=== PATIENT | male | born 1940 | race Caucasian/White ===

== ENCOUNTER 2017-11-20 11:55 | Observation (INO) ==
[2017-11-20] MEDS ORDERED: Aspirin 81 MG TAB.CHEW PO ONE (12:00)
[2017-11-20] MEDS ORDERED: 0.9 % Sodium Chloride 500 ML IVC ONE (12:00)
--- NOTE | 2017-11-20 12:03 | Emergency Department Note ---
Disposition Clinical Impression: Chest pain, rule out acute myocardial infarction, Neck pain Disposition: Home, Self-Care Condition: Fair Referrals: Jermaine Godoy DO [Primary Care Provider] - Time of Disposition: 13:51 General Adult HPI - General Stated complaint: chest pain Time Seen by Provider: 11/20/17 12:00 Source: patient, EMS Mode of arrival: EMS Limitations: no limitations Nursing Notes Reviewed: Yes Vital Signs Reviewed: Yes - History of Present Illness HPI Narrative: Patient presents to the ED via EMS as a potential STEMI alert. EMS was called to the patient's house for chest discomfort and neck pain. Upon arrival to the ED, patient states his chest is no longer hurting, but he was having pain in his neck and bilateral shoulder/trapezius. No known injury. Has not strained it in any way. Did not have any diaphoresis, nausea, vomiting or shortness of breath. Patient has no history of ACS. He has also never had a stress test or heart catheter. Denies any abdominal pain. No rashes. No pain or swelling in his legs. His chest pain is pleuritic in nature. Pain Scale: 2 - Related Data Home Medications Medication Instructions Recorded Confirmed Amlodipine [Norvasc] 5 mg PO DAILY 01/18/15 01/29/16 Carvedilol [Coreg] 25 mg PO BID 01/18/15 01/29/16 Ergocalciferol (VITAMIN D2) 50,000 unit PO WE 01/18/15 01/29/16 [Vitamin D2 (50,000 UNIT)] Simvastatin [Zocor] 40 mg PO HS 01/18/15 01/29/16 Valsartan [Diovan] 320 mg PO DAILY 12/23/15 01/29/16 GlipiZIDE [Glipizide ER] 5 mg PO BID 01/29/16 01/29/16 Previous Rx's Medication Instructions Recorded Acetaminophen [Tylenol] 650 mg PO Q6HR PRN #0 01/30/16 Allergies Allergy/AdvReac Type Severity Reaction Status Date / Time atorvastatin Allergy Rash Verified 11/20/17 12:02 metformin Allergy Rash Verified 11/20/17 12:02 Penicillins [PCN] Allergy Rash Verified 11/20/17 12:02 Review of Systems: As reviewed in the HPI. All other systems reviewed are negative or normal. Past Medical History - Past Medical History Attestation: Yes The following information was validated with the patient. Source: patient Medical history: Reports: diabetes, hyperlipidemia, hypertension, renal disease Surgical history: Reports: other Psychiatric history: Reports: no psych history - Social History Smoking Status: Former smoker Smokeless Tobacco Status: Yes (chews tobacco) Alcohol use: Reports: occasionally Drug use: Reports: none Physical Exam CONSTITUTIONAL: [well appearing, alert and in no acute distress] EYES: [EOMI, clear conjunctiva, PERRLA] HENT: [Normocephalic, atraumatic, moist mucus membranes, normal oropharynx] NECK: [normal inspection, full ROM, trachea midline, no obvious swelling] PULMONARY: [normal lung sounds bilaterally, normal chest rise and fall, no respiratory distress or stridor, no wheezes, no rales, no rhonchi CARDIOVASCULAR: [regular rate, regular rhythm, normal heart sounds, no murmurs, distal extremities are warm and well perfused] GASTROINSTESTINAL: [soft, non-tender, non-rigid, non-distended, no guarding, no rebound, normal bowel sounds] GENITOURINARY/RECTAL: [deferred] NEUROLOGIC: [Alert, oriented x3, normal speech, moves all extremities] EXTREMITIES: [Normal inspection, full ROM, no tenderness, no pedal edema, normal capillary refill] MUSCULOSKELETAL: [no gross deformities, atraumatic] SKIN: [No cyanosis, no diaphoresis, normal color, warm, no rash] PSYCHIATRIC: [normal mood and affect] - General Limitations: no limitations General appearance: alert, in no apparent distress Course Course Narrative: Patient presenting with chest pain, neck pain and back pain. EMS EKG does "read " STEMI but is not STEMI. Will get CP workup and admit. - Reevaluation(s) Reevaluation #1: Admitted to the hospitalist service. Did request Lovenox. Time: 13:46 Vital Signs Temperature 98.3 F 11/20/17 11:55 Pulse Rate 84 11/20/17 11:55 Respiratory Rate 18 11/20/17 11:55 Blood Pressure 141/81 11/20/17 11:55 O2 Sat by Pulse Oximetry 99 11/20/17 11:55 Temperature 98.3 F 11/20/17 11:55 Pulse Rate 84 11/20/17 11:55 Respiratory Rate 18 11/20/17 11:55 Blood Pressure 141/81 11/20/17 11:55 O2 Sat by Pulse Oximetry 97 11/20/17 12:02 Oxygen Delivery Oxygen Delivery Room Air Medical Decision Making - Medical Records Medical records reviewed: Yes I reviewed the patient's medical records. - Lab Data Lab results reviewed: Yes I reviewed the patient's lab results. Result diagrams: 11/20/17 12:10 11/20/17 12:10 Lab Results 11/20/17 11/20/17 11/20/17 Range/Units 12:00 12:10 12:10 WBC 8.4 (4.3-11.1) K/mcL RBC 4.42 (4.19-5.50) M/mcL Hgb 14.0 (12.9-16.9) g/dL Hct 40.6 (37.5-50.1) % MCV 91.9 (83.0-100.0) fL MCH 31.7 (28.0-33.3) pg MCHC 34.5 (31.6-35.5) g/dL RDW 12.3 (11.5-14.5) % Plt Count 133 L (140-400) K/mcL MPV 10.1 (9.4-12.4) fL Immature Gran % 0.4 (0-4) % Seg Neutrophils % 73.3 % Lymphocytes % 16.8 % Monocytes % 8.8 % Eosinophils % 0.5 % Basophils % 0.2 % Neutrophils # 6.2 (1.6-8.9) K/mcL Lymphocytes # 1.4 (0.6-4.6) K/mcL Monocytes # 0.7 (0.0-1.3) K/mcL Eosinophils # 0.0 (0.0-0.6) K/mcL Basophils # 0.0 (0.0-0.2) K/mcL PT 11.8 (9.4-12.1) Seconds INR 1.0 APTT 34.5 (26.0-36.0) Seconds D-Dimer 446 (0-500) ng/mLFEU Sodium 138 (136-145) mEq/L Potassium 4.2 (3.5-5.1) mEq/L Chloride 107 (98-107) mEq/L Carbon Dioxide 23 (23-29) mEq/L BUN 22 (8-23) mg/dL Creatinine 1.38 H (0.70-1.30) mg/dL Est GFR ( Amer) > 60 (> 60) Est GFR (Non-Af Amer) 50 L (> 60) BUN/Creatinine Ratio 16 (6-26) Glucose 143 H (70-105) mg/dL Calculated Osmolality 292 (280-300) Calcium 9.4 (8.6-10.3) mg/dL Troponin I < 0.03 (< 0.04) ng/mL - Radiology Data Radiology results reviewed: Yes I reviewed the patient's radiology results. - EKG Data EKG #1 EKG attestation: Yes I reviewed and interpreted this EKG. EKG results narrative: Sinus rhythm, rate 78, normal axis, ST segment depression V2, V3, V4 and V5, PVCs, no acute ST segment elevation Attestation Statement - Attestation Attestation: I examined this patient and my medical decision-making was reviewed with the Resident Physician, Dr. Rubio. I agree with the documented findings, disposition and treatment plan as described except to the extent set forth below. Patient is a 77-year-old male with a history of diabetes hypertension hyperlipidemia and presents seem or permit by EMS for chest pain. Patient was called over the radio as possible STEMI alert. EKG was transmitted but did not meet criteria for STEMI. We awaited the patient for the patient in the trauma bay. Patient's called 911 for chest pain radiating up into his neck. On arrival to the ED patient states the pain in his chest had resolved but he was still experiencing pain in the neck and bilateral shoulders. Patient denies any history of falls or trauma, no musculoskeletal injuries or strain. Patient has never had a cardiac evaluation in the past and no prior cardiac history. Patient denies any associated symptoms with this pain but does state that it is aggravated by deep breathing. I agree with patient's physical exam findings as documented. Vital signs are stable. Bilateral blood pressures are equal Patient's EKG shows normal sinus rhythm with ST depression seen in the anterolateral leads. Patient's lab evaluation as well as chest x-rays unremarkable overall with a negative troponin and d-dimer. Patient currently is pain-free. Patient will be admitted for further evaluation of chest pain case was discussed with hospitalist who accepted patient for admission for further eval management.
[2017-11-20] MEDS ORDERED: 0.9 % Sodium Chloride 1,000 ML ONE (12:10)
[2017-11-20 12:24] LABS: Basophils % 0.2 %; Eosinophils % 0.5 %; Hematocrit 40.6 % (37.5-50.1); Immature Granulocytes % 0.4 % (0-4); Lymphocytes # 1.4 K/mcL (0.6-4.6); Lymphocytes % 16.8 %; Mean Corpuscular HGB Conc 34.5 g/dL (31.6-35.5); Mean Corpuscular Hemoglobin 31.7 pg (28.0-33.3); Mean Corpuscular Volume 91.9 fL (83.0-100.0); Mean Platelet Volume 10.1 fL (9.4-12.4); Monocytes # 0.7 K/mcL (0.0-1.3); Monocytes % 8.8 %; Neutrophils # 6.2 K/mcL (1.6-8.9); Platelet Count 133 K/mcL (140-400); Red Blood Count 4.42 M/mcL (4.19-5.50); Red Cell Distribution Width 12.3 % (11.5-14.5); Segmented Neutrophils % 73.3 %
[2017-11-20 12:32] LABS: Prothrombin Time 11.8 Seconds (9.4-12.1)
[2017-11-20 12:35] LABS: Activated Partial Thrombo Time 34.5 Seconds (26.0-36.0)
[2017-11-20 12:45] LABS: BUN/Creatinine Ratio 16 (6-26); Blood Urea Nitrogen 22 mg/dL (8-23); Calcium 9.4 mg/dL (8.6-10.3); Carbon Dioxide 23 mEq/L (23-29); Chloride 107 mEq/L (98-107); Glucose 143 mg/dL (70-105); Osmolality,Calculated 292 (280-300); Potassium 4.2 mEq/L (3.5-5.1); Sodium 138 mEq/L (136-145); eGFR For Non-African Americans 50 (> 60)
[2017-11-20 12:46] LABS: Troponin I < 0.03 ng/mL (< 0.04)
[2017-11-20] MEDS ORDERED: *HR* Enoxaparin 120 MG/0.8 ML SYRINGE SQ STA (13:42)
--- NOTE | 2017-11-20 15:17 | Internal Med History&Physical ---
Date of Encounter: 11/20/17 Time of Encounter: 15:00 Internal Medicine - H&P: HPI Chief complaint: Bilateral shoulder and neck pain, throat pain Admitted From: Emergency Dept Plans for Post Hospital Care: Home History of present illness: Mr. Dillon is a 77 year old male patient with history of diabetes, hypertension and chronic kidney disease stage III who presented to the ER with complaints of bilateral shoulder pain and neck pain along with pain in his throat and neck with deep breaths. He reports that his symptoms began yesterday morning and have persisted since then. However the resolved while he was being transported here. He denies any fevers or chills. No prior history of coronary artery disease. No recent stress test. No palpitations. No shortness of breath. No fevers or chills. No nausea or vomiting. Past Med Surg Social Fam HX - Past Medical History Attestation: Yes The following information was validated with the patient. Source: patient Medical history: diabetes, hyperlipidemia, hypertension, renal disease Psychiatric history: no psych history - Past Surgical History Surgical History: other Additional surgical history: right knee reaplacement - Social History Smoking Status: Former smoker Smokeless Tobacco Status: Yes (chews tobacco) Alcohol use: occasionally Drug use: none - Additional Family History Additional family history: History of diabetes, possible congestive heart failure in father Internal Medicine - H&P: Meds Amlodipine [Norvasc] 5 mg PO DAILY 01/18/15 [History] Carvedilol [Coreg] 25 mg PO BID 01/18/15 [History] Ergocalciferol (VITAMIN D2) [Vitamin D2 (50,000 UNIT)] 50,000 unit PO WE [History] Simvastatin [Zocor] 40 mg PO HS 01/18/15 [History] Valsartan [Diovan] 320 mg PO DAILY 12/23/15 [History] GlipiZIDE [Glipizide ER] 5 mg PO BID 01/29/16 [History] Acetaminophen [Tylenol] 650 mg PO Q6HR PRN #0 01/30/16 [Rx] 3 Allergy/AdvReac Type Severity Reaction Status Date / Time atorvastatin Allergy Rash Verified 11/20/17 12:02 metformin Allergy Rash Verified 11/20/17 12:02 Penicillins [PCN] Allergy Rash Verified 11/20/17 12:02 All Systems PM: A 10-system review of systems was performed and is negative for pertinent findings except as documented above in the HPI. - Constitutional Constitutional: no chills, no fever(s), no night sweats - EENT Eyes: no change in vision, no discharge, no pain, no photophobia Ears: no ear discharge, no ear pain, no tinnitus Nose, mouth and throat: no dysphagia, no nasal discharge, no neck pain, no sore throat - Cardiovascular Cardiovascular ROS IM: chest pain, no diaphoresis, no dyspnea, no lightheadedness, no palpitations, no syncope - Respiratory Respiratory: no cough, no dyspnea, no wheezing, no excessive phlegm production - Gastrointestinal Gastrointestinal: no abdominal pain, no diarrhea, no hematemesis, no hematochezia, no melena, no nausea, no vomiting - Musculoskeletal Musculoskeletal ROS IM: neck pain, no numbness, no tingling - Integumentary Integumentary IM: no rash, no unusual bruising - Neurological Neurological ROS: no confusion, no convulsions, no focal weakness, no numbness, no tingling, no tremor(s) - Hematologic/Lymphatic Hematologic/Lymphatic: no easy bruising - Constitutional Vitals: Temp Pulse Resp BP Pulse Ox 98.3 F 84 18 133/77 97 11/20/17 11:55 11/20/17 11:55 11/20/17 14:56 11/20/17 14:56 11/20/17 12:02 General appearance: Present: cooperative, A&O X 3, answers questions appropriately Exam: General: Patient is alert, no acute distress, oriented x 3 Head: atraumatic, normocephalic, Eye: normal appearance, PERRL, no scleral icterus, no conjunctival injection Neck: normal inspection, trachea midline, full ROM, no carotid bruits Chest: normal inspection, symmetric chest rise, no chest wall tenderness. Patient has a lidocaine patch on the back of his neck and upper chest Respiratory: Good respiratory effort. Normal breath sounds. No wheezing or crackles. Cardiovascular: Regular rate and rhythm. s1 and s2 normal No clicks, rubs, gallops, or murmurs. No pedal edema Abdomen: Abdomen is soft, nontender. Bowel sounds are present Musculoskeletal: Spontaneously moving all extremities Skin: warm, dry, intact. Neuro: Alert oriented x 3 normal cranial nerves, no focal deficits Psych: Patient's affect is normal Internal Med - H&P Results - Labs CBC & Chem 7: 11/20/17 12:10 11/20/17 12:10 - EKG Data -: EKG Interpreted by Myself - EKG Data Prior EKG available for review: yes When compared to previous EKG: there is no significant change Interpretation IM: other (Right bundle-branch block) - Impressions Impressions Chest X-Ray 11/20/17 12:00 IMPRESSION: No acute cardiopulmonary process identified. D/ / Aleksandar Anna MD / Aleksandar Anna MD Interpreting Provider: Aleksandar Anna MD - Assessment and plan (1) Neck pain Current Visit: Yes Status: Acute Assessment and plan: Patient complaining of neck pain and bilateral shoulder pain. Now improved. Also reported pain in throat with deep breaths. Given his abnormal EKG, there was concern for ACS. For now we will monitor his troponins. Treat pain symptomatically. Patient was started on Lovenox in the ER. Discussed with cardiology. Await troponin trend. If troponins remain negative, we will stop Lovenox. Get 2-D echocardiogram. Consider stress test. (2) Abnormal EKG Current Visit: Yes Status: Acute Assessment and plan: EKG shows right bundle branch block. Discussed with cardiology and reviewed EKGs. No changes to old EKGs. (3) Chronic kidney disease (CKD) Current Visit: Yes Status: Chronic Assessment and plan: Stable. Creatinine appears to be at baseline. Qualifiers: Chronic kidney disease stage: stage 3 (moderate) Qualified Code(s): N18.3 - Chronic kidney disease, stage 3 (moderate) (4) Diabetes mellitus Current Visit: Yes Status: Chronic Assessment and plan: Monitor blood sugars. Place patient on sliding scale insulin. Check A1c. Qualifiers: Diabetes mellitus type: type 2 Diabetes mellitus extermination supervisor insulin use: without residential use Diabetes mellitus complication status: with kidney complications Diabetes mellitus complication detail: with chronic kidney disease Chronic kidney disease stage: stage 3 (moderate) Qualified Code(s): E11.22 - Type 2 diabetes mellitus with diabetic chronic kidney disease; N18.3 - Chronic kidney disease, stage 3 (moderate) (5) Hypertension Current Visit: Yes Status: Chronic Assessment and plan: Blood pressure elevated initially but has since improved. Will continue home medications Qualifiers: Hypertension type: essential hypertension Qualified Code(s): I10 - Essential (primary) hypertension - Time Spent With Patient Total time spent is greater than 50% in coordination of care (as documented) at patient's floor/unit and/or counseling patient:
[2017-11-20] MEDS ORDERED: Naloxone 0.4 MG/ML INJ IVP PRN (15:25)
[2017-11-20] MEDS ORDERED: Acetaminophen 325 MG TABLET PO PRN (15:25)
[2017-11-20] MEDS ORDERED: *HR* Dextrose 50 % in Water (Syg) 50 ML SYRINGE IVP PRN (15:27)
[2017-11-20] MEDS ORDERED: D5% in Water 1,000 ML IVC PRN (15:27)
[2017-11-20] MEDS ORDERED: Dextrose Gel 15 GM/37.5 ML TUBE PO PRN ×2 (15:27)
[2017-11-20] MEDS: Insulin LISPRO 300 UNITS/3 ML VIAL SQ SCH (16:46)
[2017-11-20] MEDS ORDERED: Insulin LISPRO 300 UNITS/3 ML VIAL SQ SCH (21:00)
[2017-11-20 22:51] LABS: Bilirubin,Urine Negative (Negative); Blood,Urine Small (Negative); Clarity,Urine Clear (Clear); Color,Urine Yellow (Yellow); Glucose,Urine (UA) Normal (Normal); Ketones,Urine Negative (Negative); Leukocyte Esterase,Urine Negative (Negative); Nitrite,Urine Negative (Negative); Protein,Urine 30 mg/dL (Neg-Trace); Specific Gravity,Urine 1.016 (1.010-1.025); Urobilinogen,Urine Normal (Normal)
[2017-11-20 22:52] LABS: Bacteria,Urine None Seen per hpf (None-Few); Hyaline Casts,Urine None Seen per lpf (None-Few); Squamous Epithelial Cell,Urine Few per lpf (None-Few); WBC,Urine 0-3 per hpf (0-3)
[2017-11-21 00:50] LABS: Chol/HDL Ratio 2.7 (0-4.9)
[2017-11-21] MEDS: Insulin LISPRO 300 UNITS/3 ML VIAL SQ SCH ×2 (07:51→12:34)
[2017-11-21] MEDS ORDERED: amLODIPine 5 MG TABLET PO SCH (09:00)
[2017-11-21 09:20] LABS: Estimated Average Glucose 131 mg/dl; Hemoglobin A1C 6.2 %
[2017-11-21 15:27] VITALS: BP 129/72
--- NOTE | 2017-11-21 16:09 | Discharge Summary ---
- NOTES TO OUTPATIENT PROVIDER Notes to Outpatient Provider: Patient was hospitalized here after presenting to the ER with complaints of bilateral shoulder and neck pain. By the time he came to the ER his pain had improved. He did have an abnormal EKG and so was hospitalized for observation. EKG was reviewed with cardiology. Patient has right bundle branch block. Troponins were trended. They were negative. Patient underwent 2-D echocardiogram which showed normal wall motion. He has a normal ejection fraction of 60%. At this time he is stable to be discharged home. 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 Dillon is a 77 year old male Patient with history of hypertension, diabetes, chronic kidney disease stage III, who was hospitalized here after presenting to the ER with complaints of bilateral shoulder and neck pain. By the time he came to the ER his pain had improved. He did have an abnormal EKG and so was hospitalized for observation. EKG was reviewed with cardiology. Patient has right bundle branch block. Troponins were trended. They were negative. Patient underwent 2-D echocardiogram which showed normal wall motion. He has a normal ejection fraction of 60%. At this time he is stable to be discharged home. He may benefit from getting a cardiac stress test done as outpatient for further workup Discharge discussed with: patient, nurse - Time Spent with Patient Total time spent providing and/or coordinating discharge services: Less than 30 minutes (25 min) - Discharge Medications Home Medications: Amlodipine [Norvasc] 5 mg PO DAILY 01/18/15 [History] Carvedilol [Coreg] 25 mg PO BID 01/18/15 [History] Ergocalciferol (VITAMIN D2) [Vitamin D2 (50,000 UNIT)] 50,000 unit PO WE [History] Simvastatin [Zocor] 40 mg PO HS 01/18/15 [History] GlipiZIDE [Glipizide ER] 5 mg PO BID 01/29/16 [History] Acetaminophen [Tylenol] 650 mg PO Q6HR PRN #0 01/30/16 [Rx] Olmesartan Medoxomil [Benicar] 5 mg PO DAILY 11/20/17 [History] Allergies/Adverse Reactions: 3 Allergy/AdvReac Type Severity Reaction Status Date / Time atorvastatin Allergy Rash Verified 11/20/17 12:02 metformin Allergy Rash Verified 11/20/17 12:02 Penicillins [PCN] Allergy Rash Verified 11/20/17 12:02 Date of admission: 11/20/17 14:15 Primary care physician: Jermaine Godoy DO Discharging clinician: Ruslan Doherty Anticipated date of discharge: 11/21/17 - Constitutional Vitals: Temp Pulse Resp BP Pulse Ox 97.9 F 65 16 129/72 96 11/21/17 15:25 11/21/17 15:25 11/21/17 15:25 11/21/17 15:25 11/21/17 15:25 General appearance: Present: cooperative, A&O X 3, answers questions appropriately Exam: . - Respiratory Respiratory exam: Present: CTAB. Absent: accessory muscle use, rales, rhonchi, wheezes - Cardiovascular Cardiovascular exam: Present: RRR, +S1, +S2. Absent: diastolic murmur, gallop, rubs, systolic murmur - GI/Abdominal GI/Abdominal exam: Present: normal bowel sounds, soft, no peritoneal signs. Absent: distended, tenderness - Extremities Exam Extremities exam: Present: warm, radial pulses palpable and symmetrical. Absent : calf tenderness, cyanotic, pedal edema - Neurological Exam Neurological exam: Present: CN II-XII intact, oriented X3, no focal deficits. Absent: facial droop, speech deficit - Patient Status Disposition: Home, Self-Care Condition: Good Functional capacity at discharge: independent ambulation Overall status at discharge: patient is progressing back to baseline - Discharge Instructions Follow Up With: Jermaine Godoy DO [Primary Care Provider] - (In 1-2 weeks) Forms: ED Satisfaction Letter - Diet and Activity Activity: increase activity as tolerated Diet: diabetic diet, low fat, low cholesterol, low salt diet
--- NOTE | 2017-11-22 13:11 | Electrocardiograph Report ---
[address] [place], [place] [address] Test Date: 2017-11-20 Pat Name: Raul Dillon Department: [id number] Room: 3B Gender: M Director Of Materials Management: : 1940 Requested By: Bruce Rubio Order Number: [id number] Reading MD: Regina Abreu Measurements Intervals [place] Rate: 78 P: 32 SD: 206 QRS: -13 QRSD: 155 T: 3 QT: 384 QTc: 438 Interpretive Statements Sinus rhythm Right bundle branch block Electronically Signed On 11-22-2017 13:09:45 EDT by Regina Abreu
== END 2017-11-21 17:07 | disposition home or self-care (01) ==
LOC: EMEROOARM 11:55 → 3BNU 11:55 → SUATTDRO 14:15 → 3BNU 15:32
PROVIDERS: ADMIT Internal Medicine; ATTEND Internal Medicine

== ENCOUNTER 2021-10-29 13:25 | Inpatient (IN) ==
[2021-10-29] MEDS ORDERED: 0.9 % Sodium Chloride 1,000 ML IVC ONE (13:54)
[2021-10-29 14:20] LABS: VBG HCO3 19 mEq/L (21-27); VBG PCO2 32 mmHg (41-51); VBG PH 7.38 pH Units (7.32-7.42); VBG PO2 84 mmHg (25-50)
[2021-10-29 14:22] LABS: Basophils % 0.2 %
[2021-10-29 14:33] LABS: INR 1.1; Prothrombin Time 12.7 Seconds (9.4-12.1)
[2021-10-29 14:34] LABS: Red Blood Count 4.01 M/mcL (4.19-5.50)
[2021-10-29 14:36] LABS: Activated Partial Thrombo Time 40.5 Seconds (26.0-36.0); Eosinophils % 0.2 %; Hematocrit 37.3 % (37.5-50.1); Hemoglobin 13.1 g/dL (12.9-16.9); Immature Granulocytes % 0.4 % (0-4); Immature Platelets 3.9 % (1.1-6.1); Lymphocytes # 1.3 K/mcL (0.6-4.6); Mean Corpuscular HGB Conc 35.1 g/dL (31.6-35.5); Mean Corpuscular Hemoglobin 32.7 pg (28.0-33.3); Mean Platelet Volume 10.5 fL (9.4-12.4); Monocytes # 0.4 K/mcL (0.0-1.3); Monocytes % 8.6 %; Red Cell Distribution Width 12.1 % (11.5-14.5); Segmented Neutrophils % 63.6 %; White Blood Count 4.7 K/mcL (4.3-11.1)
[2021-10-29 14:38] LABS: Platelet Count 95 K/mcL (140-400)
[2021-10-29 14:43] LABS: Alanine Aminotransferase 31 Units/L (7-52); Albumin 3.9 g/dL (3.5-5.7); Albumin/Globulin Ratio 1.4 (1.1-2.2); Alkaline Phosphatase 57 Units/L (34-104); Aspartate Amino Transferase 25 Units/L (13-39); BUN/Creatinine Ratio 17 (6-26); Bilirubin,Direct 0.1 mg/dL (0.0-0.2); Bilirubin,Indirect 0.5 mg/dL (0.0-1.0); Bilirubin,Total 0.6 mg/dL (0.3-1.0); Blood Urea Nitrogen 38 mg/dL (8-23); Calcium 8.6 mg/dL (8.6-10.3); Carbon Dioxide 20 mEq/L (23-29); Chloride 104 mEq/L (98-107); Creatine Kinase 265 Units/L (30-223); Ethanol < 10 mg/dL (Less than 10); Globulin 2.7 g/dL (2.4-3.5); Glucose 219 mg/dL (70-105); Osmolality,Calculated 290 (280-300); Potassium 3.8 mEq/L (3.5-5.1); Sodium 132 mEq/L (136-145); Total Protein 6.6 g/dL (6.4-8.9); Troponin I < 0.03 ng/mL (< 0.04)
[2021-10-29 14:58] LABS: Amphetamine Screen,Urine Negative ng/mL (Cutoff=1000); Barbiturate Screen,Urine Negative ng/mL (Cutoff=200); Benzodiazepines Screen,Urine Negative ng/mL (Cutoff=200); Cannabinoid Screen,Urine Negative ng/mL (Cutoff = 50); Cocaine Screen,Urine Negative ng/mL (Cutoff= 300); Opiate Screen,Urine Negative ng/mL (Cutoff=300); Phencyclidine Screen,Urine Negative ng/mL (Cutoff=25)
[2021-10-29 14:58] LABS: Amorphous Sediment,Urine Few per hpf (None-Few); Bacteria,Urine Few per hpf (None-Few); Bilirubin,Urine Negative (Negative); Blood,Urine Small (Negative); Clarity,Urine Turbid (Clear); Color,Urine Yellow (Yellow); Glucose,Urine (UA) Normal (Normal); Hyaline Casts,Urine Few per lpf (None Seen); Ketones,Urine Negative (Negative); Leukocyte Esterase,Urine Negative (Negative); Mucus,Urine Few per lpf (None-Few); Nitrite,Urine Negative (Negative); PH,Urine 5.5 pH Units (5.0-8.0); Protein,Urine 200 mg/dL (Neg-Trace); RBC,Urine 0-3 per hpf (0-3); Specific Gravity,Urine 1.021 (1.010-1.025); Squamous Epithelial Cell,Urine Few per hpf (None-Few); Urobilinogen,Urine Normal (Normal); WBC,Urine 0-3 per hpf (0-3)
[2021-10-29] MEDS ORDERED: Naloxone 0.4 MG/ML INJ IVP PRN (16:43)
[2021-10-29] MEDS ORDERED: Acetaminophen 325 MG TABLET PO PRN (16:43)
[2021-10-29] MEDS ORDERED: Ondansetron 4 MG/2 ML VIAL IVP PRN (16:43)
[2021-10-29] MEDS ORDERED: 0.9 % Sodium Chloride 1,000 ML IVC SCH (16:45)
[2021-10-29 16:58] LABS: Influenza A PCR Negative (Negative); Influenza B PCR Negative (Negative); Resp. Syncytial Virus PCR Negative (Negative)
[2021-10-29 17:01] LABS: SARS-CoV-2 by PCR (In House) Positive (Negative)
[2021-10-29] MEDS ORDERED: D5% in Water 1,000 ML IVC PRN (17:06)
[2021-10-29] MEDS ORDERED: *HR* Dextrose 50 % in Water (Syg) 50 ML SYRINGE IVP PRN (17:06)
[2021-10-29] MEDS ORDERED: Dextrose Gel 15 GM/37.5 ML TUBE PO PRN ×2 (17:06)
[2021-10-29] MEDS ORDERED: *HR* Heparin 5,000 UNIT/ML VIAL SQ SCH (18:00)
[2021-10-29] MEDS: Azithromycin 500 MG in D5% in Water 250 ML IVPB SCH (18:04)
[2021-10-29] MEDS: MethylPREDNISolone 40 MG/ML VIAL IVP SCH (18:04)
[2021-10-29 18:50] LABS: Magnesium 1.6 mg/dL (1.6-2.6)
[2021-10-29] MEDS: Insulin LISPRO 300 UNITS/3 ML VIAL SUBQ SCH (19:12)
[2021-10-29 19:16] LABS: Folate > 22.3 ng/mL (3.0-16.0); Vitamin B12 524 pg/mL (250-1100)
[2021-10-29 19:42] LABS: Estimated Average Glucose 174 mg/dl; Hemoglobin A1C 7.7 %
[2021-10-29] MEDS: Ipratropium 1 PUFF INHALER IH SCH (21:03)
[2021-10-29] MEDS: carvediloL 25 MG TABLET PO SCH (21:20)
[2021-10-29] MEDS: *HR* Heparin 5,000 UNIT/ML VIAL SQ SCH (21:21)
[2021-10-29] MEDS ORDERED: Ipratropium/Albuterol Neb 3 ML IH SCH (22:00)
[2021-10-30] MEDS: Ipratropium 1 PUFF INHALER IH SCH ×7 (00:24→23:59)
[2021-10-30] MEDS: Insulin LISPRO 300 UNITS/3 ML VIAL SUBQ SCH ×4 (02:25→20:30)
[2021-10-30] MEDS: *HR* Heparin 5,000 UNIT/ML VIAL SQ SCH ×3 (06:06→20:30)
[2021-10-30] MEDS: MethylPREDNISolone 40 MG/ML VIAL IVP SCH ×2 (06:16→17:06)
[2021-10-30] MEDS: carvediloL 25 MG TABLET PO SCH ×2 (07:38→17:06)
[2021-10-30 09:38] LABS: Hemoglobin 12.9 g/dL (12.9-16.9); Mean Corpuscular Volume 93.2 fL (83.0-100.0)
[2021-10-30 09:39] LABS: Hematocrit 37.2 % (37.5-50.1); Immature Granulocytes % 0.4 % (0-4); Immature Platelets 3.2 % (1.1-6.1); Lymphocytes # 0.6 K/mcL (0.6-4.6); Lymphocytes % 22.3 %; Mean Corpuscular HGB Conc 34.7 g/dL (31.6-35.5); Mean Corpuscular Hemoglobin 32.3 pg (28.0-33.3); Mean Platelet Volume 10.4 fL (9.4-12.4); Monocytes # 0.1 K/mcL (0.0-1.3); Monocytes % 4.7 %; Platelet Count 106 K/mcL (140-400); Red Blood Count 3.99 M/mcL (4.19-5.50); Segmented Neutrophils % 72.6 %; White Blood Count 2.8 K/mcL (4.3-11.1)
[2021-10-30 09:54] LABS: BUN/Creatinine Ratio 22 (6-26); Blood Urea Nitrogen 36 mg/dL (8-23); Calcium 8.9 mg/dL (8.6-10.3); Carbon Dioxide 18 mEq/L (23-29); Chloride 106 mEq/L (98-107); Glucose 223 mg/dL (70-105); Osmolality,Calculated 293 (280-300); Sodium 134 mEq/L (136-145); Troponin I < 0.03 ng/mL (< 0.04)
[2021-10-30] MEDS: Azithromycin 500 MG in D5% in Water 250 ML IVPB SCH (17:09)
[2021-10-30] MEDS ORDERED: Haloperidol Lactate 5 MG/ML VIAL IVP ONE (20:05)
[2021-10-30] MEDS ORDERED: Ziprasidone 10 MG, Closed System Device IM Kit 1 EACH in Water for inj. (sterile) 0.5 ML IM ONE (21:30)
[2021-10-31] MEDS: Insulin LISPRO 300 UNITS/3 ML VIAL SUBQ SCH ×5 (01:07→17:07)
[2021-10-31] MEDS: Ipratropium 1 PUFF INHALER IH SCH ×6 (04:38→22:57)
[2021-10-31] MEDS: *HR* Heparin 5,000 UNIT/ML VIAL SQ SCH ×3 (05:48→21:58)
[2021-10-31] MEDS: MethylPREDNISolone 40 MG/ML VIAL IVP SCH (05:48)
[2021-10-31] MEDS: carvediloL 25 MG TABLET PO SCH ×2 (07:40→17:07)
[2021-11-01] MEDS: Insulin LISPRO 300 UNITS/3 ML VIAL SUBQ SCH ×4 (01:27→17:04)
[2021-11-01] MEDS: Ipratropium 1 PUFF INHALER IH SCH ×6 (03:59→23:31)
[2021-11-01 04:53] LABS: Hematocrit 36.8 % (37.5-50.1); Hemoglobin 12.5 g/dL (12.9-16.9); Immature Granulocytes % 0.4 % (0-4); Lymphocytes # 0.7 K/mcL (0.6-4.6); Lymphocytes % 13.2 %; Mean Corpuscular Hemoglobin 31.7 pg (28.0-33.3); Mean Corpuscular Volume 93.4 fL (83.0-100.0); Mean Platelet Volume 10.6 fL (9.4-12.4); Monocytes # 0.4 K/mcL (0.0-1.3); Monocytes % 7.5 %; Neutrophils # 4.4 K/mcL (1.6-8.9); Platelet Count 120 K/mcL (140-400); Red Blood Count 3.94 M/mcL (4.19-5.50); Red Cell Distribution Width 12.4 % (11.5-14.5); Segmented Neutrophils % 78.9 %
[2021-11-01 04:58] LABS: White Blood Count 5.6 K/mcL (4.3-11.1)
[2021-11-01 05:12] LABS: Calcium 9.2 mg/dL (8.6-10.3); Potassium 4.5 mEq/L (3.5-5.1)
[2021-11-01] MEDS: *HR* Heparin 5,000 UNIT/ML VIAL SQ SCH ×3 (06:03→21:05)
[2021-11-01] MEDS: 0.9 % Sodium Chloride 1,000 ML IVC SCH ×2 (09:28→17:06)
[2021-11-01] MEDS: carvediloL 25 MG TABLET PO SCH ×2 (09:28→17:03)
[2021-11-01] MEDS: Cyanocobalamin (B-12) 1,000 MCG TABLET PO SCH (09:28)
[2021-11-01] MEDS ORDERED: Haloperidol Lactate 5 MG/ML VIAL IVP ONE (21:32)
[2021-11-02] MEDS: Insulin LISPRO 300 UNITS/3 ML VIAL SUBQ SCH ×4 (00:21→17:31)
[2021-11-02] MEDS: Ipratropium 1 PUFF INHALER IH SCH ×6 (04:03→23:54)
[2021-11-02 05:11] LABS: Hematocrit 39.4 % (37.5-50.1); Hemoglobin 13.6 g/dL (12.9-16.9); Mean Corpuscular HGB Conc 34.5 g/dL (31.6-35.5); Mean Corpuscular Hemoglobin 32.5 pg (28.0-33.3); Mean Platelet Volume 10.2 fL (9.4-12.4); Platelet Count 100 K/mcL (140-400); Red Blood Count 4.19 M/mcL (4.19-5.50); Red Cell Distribution Width 12.1 % (11.5-14.5); White Blood Count 4.2 K/mcL (4.3-11.1)
[2021-11-02 05:29] LABS: Calcium 8.7 mg/dL (8.6-10.3)
[2021-11-02] MEDS: *HR* Heparin 5,000 UNIT/ML VIAL SQ SCH ×3 (06:15→21:28)
[2021-11-02] MEDS: carvediloL 25 MG TABLET PO SCH ×2 (09:47→17:30)
[2021-11-02] MEDS: Cyanocobalamin (B-12) 1,000 MCG TABLET PO SCH (09:47)
[2021-11-03] MEDS: Insulin LISPRO 300 UNITS/3 ML VIAL SUBQ SCH ×4 (00:17→17:39)
[2021-11-03] MEDS: Ipratropium 1 PUFF INHALER IH SCH ×6 (03:43→23:26)
[2021-11-03] MEDS: *HR* Heparin 5,000 UNIT/ML VIAL SQ SCH ×3 (05:39→22:05)
[2021-11-03 08:58] LABS: Hematocrit 39.9 % (37.5-50.1); Hemoglobin 13.9 g/dL (12.9-16.9); Mean Corpuscular HGB Conc 34.8 g/dL (31.6-35.5); Mean Corpuscular Hemoglobin 32.6 pg (28.0-33.3); Mean Corpuscular Volume 93.4 fL (83.0-100.0); Mean Platelet Volume 10.3 fL (9.4-12.4); Platelet Count 109 K/mcL (140-400); Red Blood Count 4.27 M/mcL (4.19-5.50); Red Cell Distribution Width 11.9 % (11.5-14.5); White Blood Count 3.5 K/mcL (4.3-11.1)
[2021-11-03] MEDS: Cyanocobalamin (B-12) 1,000 MCG TABLET PO SCH (09:06)
[2021-11-03] MEDS: carvediloL 25 MG TABLET PO SCH ×2 (09:06→17:42)
[2021-11-03 09:09] LABS: Calcium 8.7 mg/dL (8.6-10.3); Potassium 4.1 mEq/L (3.5-5.1)
[2021-11-03] MEDS ORDERED: 0.9 % Sodium Chloride 1,000 ML IVC SCH (17:00)
[2021-11-03] MEDS: Thiamine (B-1) 100 MG TABLET PO SCH (22:05)
[2021-11-04] MEDS: Insulin LISPRO 300 UNITS/3 ML VIAL SUBQ SCH ×4 (02:54→18:31)
[2021-11-04] MEDS: Ipratropium 1 PUFF INHALER IH SCH ×6 (04:48→23:57)
[2021-11-04] MEDS: *HR* Heparin 5,000 UNIT/ML VIAL SQ SCH ×3 (06:05→22:05)
[2021-11-04] MEDS: carvediloL 25 MG TABLET PO SCH ×2 (08:14→17:48)
[2021-11-04] MEDS: Cyanocobalamin (B-12) 1,000 MCG TABLET PO SCH (08:14)
[2021-11-04] MEDS: Thiamine (B-1) 100 MG TABLET PO SCH ×2 (08:14→20:39)
[2021-11-04] MEDS ORDERED: GuaiFENesin Liq 200 MG/10 ML UDC PO PRN (08:50)
[2021-11-04 09:53] LABS: Hematocrit 37.9 % (37.5-50.1); Hemoglobin 13.3 g/dL (12.9-16.9); Mean Corpuscular HGB Conc 35.1 g/dL (31.6-35.5); Mean Corpuscular Hemoglobin 32.7 pg (28.0-33.3); Mean Corpuscular Volume 93.1 fL (83.0-100.0); Mean Platelet Volume 10.6 fL (9.4-12.4); Platelet Count 143 K/mcL (140-400); Red Blood Count 4.07 M/mcL (4.19-5.50)
[2021-11-04 10:05] LABS: Potassium 4.2 mEq/L (3.5-5.1)
[2021-11-04] MEDS ORDERED: *HR* LORazepam 2 MG/ML VIAL IVP ONE (10:53)
[2021-11-04] MEDS ORDERED: 0.9 % Sodium Chloride 1,000 ML IVC SCH (13:30)
[2021-11-04] MEDS ORDERED: OLANZapine 10 MG VIAL IM ONE (15:15)
[2021-11-04 16:05] LABS: Albumin 3.5 g/dL (3.5-5.7); Albumin/Globulin Ratio 1.3 (1.1-2.2); Bilirubin,Direct 0.2 mg/dL (0.0-0.2); Bilirubin,Indirect 0.6 mg/dL (0.0-1.0); Bilirubin,Total 0.8 mg/dL (0.3-1.0); Globulin 2.7 g/dL (2.4-3.5); Total Protein 6.2 g/dL (6.4-8.9)
[2021-11-04] MEDS: D5% in 0.45% NACL 1,000 ML IVC SCH (18:11)
[2021-11-04] MEDS: QUEtiapine Fumarate 25 MG TABLET PO SCH (20:39)
[2021-11-04] MEDS ORDERED: Haloperidol Lactate 5 MG/ML VIAL IVP ONE (21:35)
[2021-11-05] MEDS: Insulin LISPRO 300 UNITS/3 ML VIAL SUBQ SCH ×4 (01:17→18:40)
[2021-11-05] MEDS: Ipratropium 1 PUFF INHALER IH SCH ×2 (03:41→08:38)
[2021-11-05] MEDS: *HR* Heparin 5,000 UNIT/ML VIAL SQ SCH ×3 (05:38→21:08)
[2021-11-05] MEDS ORDERED: Furosemide 20 MG/2 ML VIAL IVP ONE (07:46)
[2021-11-05] MEDS ORDERED: Ipratropium 1 PUFF INHALER IH PRN (08:33)
[2021-11-05] MEDS: carvediloL 25 MG TABLET PO SCH ×2 (08:43→17:20)
[2021-11-05] MEDS: Cyanocobalamin (B-12) 1,000 MCG TABLET PO SCH (08:43)
[2021-11-05] MEDS: Thiamine (B-1) 100 MG TABLET PO SCH (08:43)
[2021-11-05 09:15] LABS: Hematocrit 38.9 % (37.5-50.1); Hemoglobin 13.5 g/dL (12.9-16.9); Mean Corpuscular HGB Conc 34.7 g/dL (31.6-35.5); Mean Corpuscular Volume 92.2 fL (83.0-100.0); Mean Platelet Volume 10.1 fL (9.4-12.4); Platelet Count 195 K/mcL (140-400); Red Blood Count 4.22 M/mcL (4.19-5.50); White Blood Count 3.6 K/mcL (4.3-11.1)
[2021-11-05 09:38] LABS: Calcium 9.2 mg/dL (8.6-10.3); Potassium 4.5 mEq/L (3.5-5.1)
[2021-11-05] MEDS: D5% in 0.45% NACL 1,000 ML IVC SCH (10:06)
[2021-11-05] MEDS: QUEtiapine Fumarate 25 MG TABLET PO SCH (16:44)
[2021-11-05] MEDS: Thiamine (B-1) 100 MG in 0.9 % Sodium Chloride 50 ML IVPB SCH ×2 (16:45→21:08)
[2021-11-05] MEDS ORDERED: Haloperidol Lactate 5 MG/ML VIAL IVP ONE (19:45)
[2021-11-06] MEDS: Insulin LISPRO 300 UNITS/3 ML VIAL SUBQ SCH ×5 (00:44→20:49)
[2021-11-06] MEDS: *HR* Heparin 5,000 UNIT/ML VIAL SQ SCH ×3 (05:59→20:50)
[2021-11-06 06:00] LABS: Hematocrit 37.2 % (37.5-50.1); Mean Corpuscular HGB Conc 34.9 g/dL (31.6-35.5); Mean Corpuscular Hemoglobin 32.7 pg (28.0-33.3); Mean Corpuscular Volume 93.5 fL (83.0-100.0); Mean Platelet Volume 10.1 fL (9.4-12.4); Platelet Count 191 K/mcL (140-400); Red Blood Count 3.98 M/mcL (4.19-5.50); Red Cell Distribution Width 11.9 % (11.5-14.5); White Blood Count 4.2 K/mcL (4.3-11.1)
[2021-11-06 06:19] LABS: Calcium 9.1 mg/dL (8.6-10.3)
[2021-11-06] MEDS: Cyanocobalamin (B-12) 1,000 MCG TABLET PO SCH (09:09)
[2021-11-06] MEDS: carvediloL 25 MG TABLET PO SCH ×2 (09:09→16:37)
[2021-11-06] MEDS: Thiamine (B-1) 100 MG in 0.9 % Sodium Chloride 50 ML IVPB SCH ×2 (09:13→15:40)
[2021-11-06 19:23] LABS: Procalcitonin 0.06 ng/mL (0.00-0.15)
[2021-11-06] MEDS: QUEtiapine Fumarate 25 MG TABLET PO SCH (20:49)
[2021-11-07 06:03] LABS: Calcium 9.4 mg/dL (8.6-10.3); Potassium 4.5 mEq/L (3.5-5.1)
[2021-11-07] MEDS: *HR* Heparin 5,000 UNIT/ML VIAL SQ SCH ×3 (06:09→20:43)
[2021-11-07 06:36] LABS: Hemoglobin 13.5 g/dL (12.9-16.9); Mean Corpuscular HGB Conc 34.6 g/dL (31.6-35.5); Mean Corpuscular Hemoglobin 32.8 pg (28.0-33.3); Mean Corpuscular Volume 94.9 fL (83.0-100.0); Mean Platelet Volume 10.4 fL (9.4-12.4); Platelet Count 243 K/mcL (140-400); Red Blood Count 4.11 M/mcL (4.19-5.50); Red Cell Distribution Width 12.2 % (11.5-14.5)
[2021-11-07] MEDS: Cyanocobalamin (B-12) 1,000 MCG TABLET PO SCH (08:24)
[2021-11-07] MEDS: carvediloL 25 MG TABLET PO SCH ×2 (08:24→17:02)
[2021-11-07] MEDS: Insulin LISPRO 300 UNITS/3 ML VIAL SUBQ SCH ×4 (08:25→20:43)
[2021-11-07] MEDS: 0.9 % Sodium Chloride 1,000 ML IVC SCH (16:59)
[2021-11-07] MEDS: QUEtiapine Fumarate 25 MG TABLET PO SCH (20:42)
[2021-11-08] MEDS ORDERED: QUEtiapine Fumarate 25 MG TABLET PO ONE ×2 (00:36→21:43)
[2021-11-08] MEDS: *HR* Heparin 5,000 UNIT/ML VIAL SQ SCH ×3 (06:33→20:35)
[2021-11-08] MEDS: Insulin LISPRO 300 UNITS/3 ML VIAL SUBQ SCH ×4 (10:21→20:39)
[2021-11-08] MEDS: Cyanocobalamin (B-12) 1,000 MCG TABLET PO SCH (10:22)
[2021-11-08] MEDS: carvediloL 25 MG TABLET PO SCH ×2 (10:22→17:34)
[2021-11-08] MEDS: Megestrol Acetate 400 MG/10 ML UDC PO SCH (12:54)
[2021-11-08] MEDS: 0.9 % Sodium Chloride 1,000 ML IVC SCH (12:54)
[2021-11-08 17:24] LABS: Hematocrit 35.5 % (37.5-50.1); Hemoglobin 12.3 g/dL (12.9-16.9); Mean Corpuscular HGB Conc 34.6 g/dL (31.6-35.5); Mean Corpuscular Volume 95.2 fL (83.0-100.0); Mean Platelet Volume 10.3 fL (9.4-12.4); Platelet Count 202 K/mcL (140-400); Red Blood Count 3.73 M/mcL (4.19-5.50); Red Cell Distribution Width 12.1 % (11.5-14.5); White Blood Count 4.6 K/mcL (4.3-11.1)
[2021-11-08 17:43] LABS: Calcium 8.9 mg/dL (8.6-10.3); Potassium 4.9 mEq/L (3.5-5.1)
[2021-11-08] MEDS: QUEtiapine Fumarate 25 MG TABLET PO SCH (20:35)
[2021-11-09] MEDS: *HR* Heparin 5,000 UNIT/ML VIAL SQ SCH ×3 (05:39→20:03)
[2021-11-09] MEDS: Cyanocobalamin (B-12) 1,000 MCG TABLET PO SCH (09:05)
[2021-11-09] MEDS: carvediloL 25 MG TABLET PO SCH ×2 (09:05→17:12)
[2021-11-09] MEDS: Insulin LISPRO 300 UNITS/3 ML VIAL SUBQ SCH ×4 (09:12→20:12)
[2021-11-09 09:22] LABS: ANA IgG by ELISA NONE DETECTED (None Detected)
[2021-11-09] MEDS: Megestrol Acetate 400 MG/10 ML UDC PO SCH (09:27)
[2021-11-09] MEDS: 0.9 % Sodium Chloride 1,000 ML IVC SCH (09:28)
[2021-11-09] MEDS: QUEtiapine Fumarate 25 MG TABLET PO SCH (19:37)
[2021-11-09] MEDS ORDERED: QUEtiapine Fumarate 25 MG TABLET PO ONE (19:53)
[2021-11-10] MEDS ORDERED: Haloperidol Lactate 5 MG/ML VIAL IM ONE ×2 (00:02→21:35)
[2021-11-10] MEDS: *HR* Heparin 5,000 UNIT/ML VIAL SQ SCH ×3 (05:15→20:47)
[2021-11-10] MEDS: 0.9 % Sodium Chloride 1,000 ML IVC SCH (07:16)
[2021-11-10] MEDS: carvediloL 25 MG TABLET PO SCH ×2 (09:17→16:54)
[2021-11-10] MEDS: Cyanocobalamin (B-12) 1,000 MCG TABLET PO SCH (09:17)
[2021-11-10] MEDS: Insulin LISPRO 300 UNITS/3 ML VIAL SUBQ SCH ×4 (09:20→20:16)
[2021-11-10] MEDS: dexAMETHasone 4 MG TABLET PO SCH (09:27)
[2021-11-10] MEDS: QUEtiapine Fumarate 25 MG TABLET PO SCH (20:11)
[2021-11-10] MEDS ORDERED: *HR* Labetalol 20 MG/4 ML SYRINGE IVP ONE (20:36)
[2021-11-11] MEDS: *HR* Heparin 5,000 UNIT/ML VIAL SQ SCH ×3 (05:16→21:32)
[2021-11-11] MEDS: Cyanocobalamin (B-12) 1,000 MCG TABLET PO SCH (08:05)
[2021-11-11] MEDS: carvediloL 25 MG TABLET PO SCH ×2 (08:05→16:01)
[2021-11-11] MEDS: dexAMETHasone 4 MG TABLET PO SCH (08:05)
[2021-11-11] MEDS: Insulin LISPRO 300 UNITS/3 ML VIAL SUBQ SCH ×4 (08:09→19:39)
[2021-11-11] MEDS: QUEtiapine Fumarate 25 MG TABLET PO SCH (16:02)
[2021-11-11] MEDS: Insulin DETEMIR 100 UNIT/ML X5UNITS SUBQ SCH (21:32)
[2021-11-12] MEDS: *HR* Heparin 5,000 UNIT/ML VIAL SQ SCH ×3 (05:24→20:05)
[2021-11-12] MEDS: 0.9 % Sodium Chloride 1,000 ML IVC SCH (07:41)
[2021-11-12] MEDS: Insulin LISPRO 300 UNITS/3 ML VIAL SUBQ SCH ×5 (07:45→20:05)
[2021-11-12] MEDS: QUEtiapine Fumarate 25 MG TABLET PO SCH ×3 (07:46→21:17)
[2021-11-12] MEDS: carvediloL 25 MG TABLET PO SCH ×2 (07:46→17:33)
[2021-11-12] MEDS: Cyanocobalamin (B-12) 1,000 MCG TABLET PO SCH (07:46)
[2021-11-12] MEDS: dexAMETHasone 4 MG TABLET PO SCH (07:46)
[2021-11-12 14:52] LABS: Basophils % 0.1 %; Eosinophils % 0.1 %; Hematocrit 44.7 % (37.5-50.1); Immature Granulocytes % 0.5 % (0-4); Lymphocytes # 0.7 K/mcL (0.6-4.6); Lymphocytes % 7.2 %; Mean Corpuscular HGB Conc 35.8 g/dL (31.6-35.5); Mean Corpuscular Hemoglobin 32.6 pg (28.0-33.3); Mean Platelet Volume 10.4 fL (9.4-12.4); Monocytes # 0.2 K/mcL (0.0-1.3); Monocytes % 1.8 %; Neutrophils # 8.5 K/mcL (1.6-8.9); Platelet Count 293 K/mcL (140-400); Red Blood Count 4.91 M/mcL (4.19-5.50); Red Cell Distribution Width 11.9 % (11.5-14.5); Segmented Neutrophils % 90.3 %
[2021-11-12 14:55] LABS: White Blood Count 9.4 K/mcL (4.3-11.1)
[2021-11-12 15:16] LABS: Calcium 9.4 mg/dL (8.6-10.3); Potassium 5.2 mEq/L (3.5-5.1)
[2021-11-12] MEDS: Insulin DETEMIR 100 UNIT/ML X5UNITS SUBQ SCH (20:06)
[2021-11-12] MEDS ORDERED: *HR* LORazepam 2 MG/ML VIAL IVP ONE (21:37)
[2021-11-12] MEDS ORDERED: *HR* LORazepam 2 MG/ML VIAL IM STA (21:46)
[2021-11-13] MEDS: *HR* Heparin 5,000 UNIT/ML VIAL SQ SCH ×3 (05:41→21:35)
[2021-11-13] MEDS: dexAMETHasone 4 MG TABLET PO SCH (08:09)
[2021-11-13] MEDS: carvediloL 25 MG TABLET PO SCH ×2 (08:09→17:22)
[2021-11-13] MEDS: Cyanocobalamin (B-12) 1,000 MCG TABLET PO SCH (08:10)
[2021-11-13] MEDS: Insulin LISPRO 300 UNITS/3 ML VIAL SUBQ SCH ×4 (08:11→20:31)
[2021-11-13 09:03] LABS: Basophils % 0.1 %; Eosinophils % 0.1 %; Hematocrit 45.9 % (37.5-50.1); Hemoglobin 16.1 g/dL (12.9-16.9); Immature Granulocytes % 0.5 % (0-4); Lymphocytes # 1.4 K/mcL (0.6-4.6); Lymphocytes % 13.3 %; Mean Corpuscular HGB Conc 35.1 g/dL (31.6-35.5); Mean Corpuscular Hemoglobin 32.1 pg (28.0-33.3); Mean Corpuscular Volume 91.6 fL (83.0-100.0); Mean Platelet Volume 10.3 fL (9.4-12.4); Monocytes # 0.7 K/mcL (0.0-1.3); Platelet Count 248 K/mcL (140-400); Red Blood Count 5.01 M/mcL (4.19-5.50); Red Cell Distribution Width 12.1 % (11.5-14.5); White Blood Count 10.2 K/mcL (4.3-11.1)
[2021-11-13 09:26] LABS: Calcium 9.3 mg/dL (8.6-10.3); Potassium 4.6 mEq/L (3.5-5.1)
[2021-11-13] MEDS ORDERED: 0.9 % Sodium Chloride 1,000 ML IVC SCH (10:00)
[2021-11-13] MEDS: QUEtiapine Fumarate 25 MG TABLET PO PRN (16:25)
[2021-11-13] MEDS ORDERED: *HR* LORazepam 2 MG/ML VIAL IM STA (21:16)
[2021-11-13] MEDS: QUEtiapine Fumarate 25 MG TABLET PO SCH (21:26)
[2021-11-13] MEDS: Insulin DETEMIR 100 UNIT/ML X5UNITS SUBQ SCH (21:27)
[2021-11-14] MEDS: *HR* Heparin 5,000 UNIT/ML VIAL SQ SCH ×3 (05:33→21:23)
[2021-11-14] MEDS ORDERED: dexAMETHasone 4 MG TABLET PO SCH (09:00)
[2021-11-14] MEDS: Insulin LISPRO 300 UNITS/3 ML VIAL SUBQ SCH ×4 (09:52→20:43)
[2021-11-14] MEDS: 0.9 % Sodium Chloride 1,000 ML IVC SCH ×2 (09:52→21:35)
[2021-11-14 11:48] LABS: Calcium 8.7 mg/dL (8.6-10.3); Potassium 4.7 mEq/L (3.5-5.1)
[2021-11-14] MEDS: carvediloL 25 MG TABLET PO SCH ×2 (12:34→21:22)
[2021-11-14] MEDS: Cyanocobalamin (B-12) 1,000 MCG TABLET PO SCH (12:34)
[2021-11-14] MEDS: QUEtiapine Fumarate 25 MG TABLET PO SCH (21:22)
[2021-11-14] MEDS: Insulin DETEMIR 100 UNIT/ML X5UNITS SUBQ SCH (21:22)
[2021-11-15] MEDS: *HR* Heparin 5,000 UNIT/ML VIAL SQ SCH ×3 (05:50→20:07)
[2021-11-15] MEDS: Cyanocobalamin (B-12) 1,000 MCG TABLET PO SCH (07:54)
[2021-11-15] MEDS: carvediloL 25 MG TABLET PO SCH ×2 (07:54→16:25)
[2021-11-15] MEDS: Insulin LISPRO 300 UNITS/3 ML VIAL SUBQ SCH ×4 (08:12→20:08)
[2021-11-15 09:52] LABS: Potassium 4.7 mEq/L (3.5-5.1)
[2021-11-15] MEDS: Sodium Bicarbonate 75 MEQ in 0.45 % Sodium Chloride 1,000 ML IVC SCH (12:39)
[2021-11-15] MEDS: 0.9 % Sodium Chloride 1,000 ML IVC SCH (12:43)
[2021-11-15] MEDS: QUEtiapine Fumarate 25 MG TABLET PO PRN (16:26)
[2021-11-15 18:19] LABS: Bilirubin,Urine Negative (Negative); Blood,Urine Negative (Negative); Clarity,Urine Clear (Clear); Color,Urine Light-Yellow (Yellow); Glucose,Urine (UA) Normal (Normal); Ketones,Urine Negative (Negative); Leukocyte Esterase,Urine Negative (Negative); Nitrite,Urine Negative (Negative); PH,Urine 5.5 pH Units (5.0-8.0); Protein,Urine Negative (Neg-Trace); Specific Gravity,Urine 1.015 (1.010-1.025); Urobilinogen,Urine Normal (Normal)
[2021-11-15 18:30] LABS: Sodium, Urine 43.4 mEq/L
[2021-11-15] MEDS: QUEtiapine Fumarate 25 MG TABLET PO SCH (20:07)
[2021-11-15] MEDS: Insulin DETEMIR 100 UNIT/ML X5UNITS SUBQ SCH (20:09)
[2021-11-16] MEDS: Sodium Bicarbonate 75 MEQ in 0.45 % Sodium Chloride 1,000 ML IVC SCH ×2 (02:25→17:59)
[2021-11-16 03:08] LABS: Eosinophils # 0.1 K/mcL (0.0-0.6); Eosinophils % 0.9 %; Hematocrit 40.8 % (37.5-50.1); Immature Granulocytes % 0.4 % (0-4); Lymphocytes # 1.6 K/mcL (0.6-4.6); Lymphocytes % 22.7 %; Mean Corpuscular HGB Conc 35.3 g/dL (31.6-35.5); Mean Corpuscular Hemoglobin 32.1 pg (28.0-33.3); Mean Corpuscular Volume 91.1 fL (83.0-100.0); Mean Platelet Volume 10.9 fL (9.4-12.4); Monocytes # 0.5 K/mcL (0.0-1.3); Monocytes % 7.4 %; Neutrophils # 4.8 K/mcL (1.6-8.9); Platelet Count 163 K/mcL (140-400); Red Blood Count 4.48 M/mcL (4.19-5.50); Red Cell Distribution Width 11.9 % (11.5-14.5); Segmented Neutrophils % 68.6 %; White Blood Count 7.1 K/mcL (4.3-11.1)
[2021-11-16 03:10] LABS: Hemoglobin 14.4 g/dL (12.9-16.9)
[2021-11-16 03:32] LABS: Albumin 3.4 g/dL (3.5-5.7); Albumin/Globulin Ratio 1.4 (1.1-2.2); Bilirubin,Total 0.7 mg/dL (0.3-1.0); Calcium 8.7 mg/dL (8.6-10.3); Globulin 2.4 g/dL (2.4-3.5); Total Protein 5.8 g/dL (6.4-8.9)
[2021-11-16] MEDS: *HR* Heparin 5,000 UNIT/ML VIAL SQ SCH ×3 (05:40→21:00)
[2021-11-16] MEDS: Insulin LISPRO 300 UNITS/3 ML VIAL SUBQ SCH ×4 (08:17→21:02)
[2021-11-16] MEDS ORDERED: dexAMETHasone 4 MG TABLET PO SCH (09:00)
[2021-11-16] MEDS: Cyanocobalamin (B-12) 1,000 MCG TABLET PO SCH (09:33)
[2021-11-16] MEDS: carvediloL 25 MG TABLET PO SCH ×2 (09:35→18:04)
[2021-11-16] MEDS: QUEtiapine Fumarate 25 MG TABLET PO SCH (20:59)
[2021-11-16] MEDS: Insulin DETEMIR 100 UNIT/ML X5UNITS SUBQ SCH (21:01)
[2021-11-17 05:51] LABS: Basophils % 0.1 %; Eosinophils # 0.1 K/mcL (0.0-0.6); Eosinophils % 1.1 %; Hematocrit 42.3 % (37.5-50.1); Hemoglobin 14.7 g/dL (12.9-16.9); Immature Granulocytes % 0.3 % (0-4); Lymphocytes # 1.8 K/mcL (0.6-4.6); Lymphocytes % 24.8 %; Mean Corpuscular HGB Conc 34.8 g/dL (31.6-35.5); Mean Platelet Volume 10.9 fL (9.4-12.4); Monocytes # 0.6 K/mcL (0.0-1.3); Monocytes % 7.7 %; Neutrophils # 4.9 K/mcL (1.6-8.9); Platelet Count 139 K/mcL (140-400); Red Cell Distribution Width 12.2 % (11.5-14.5); White Blood Count 7.4 K/mcL (4.3-11.1)
[2021-11-17] MEDS: *HR* Heparin 5,000 UNIT/ML VIAL SQ SCH (05:58)
[2021-11-17 06:43] LABS: Potassium 4.6 mEq/L (3.5-5.1)
[2021-11-17] MEDS: Insulin LISPRO 300 UNITS/3 ML VIAL SUBQ SCH ×2 (08:09→12:51)
[2021-11-17] MEDS: Sodium Bicarbonate 75 MEQ in 0.45 % Sodium Chloride 1,000 ML IVC SCH (08:09)
[2021-11-17] MEDS: Cyanocobalamin (B-12) 1,000 MCG TABLET PO SCH (08:09)
[2021-11-17] MEDS: carvediloL 25 MG TABLET PO SCH (08:09)
[2021-11-17 11:49] LABS: Influenza A PCR Negative (Negative); Influenza B PCR Negative (Negative); Resp. Syncytial Virus PCR Negative (Negative)
[2021-11-17 12:00] LABS: SARS-CoV-2 by PCR (In House) Negative (Negative)
[2021-11-17 12:02] VITALS: BP 103/70; PULSE 75; TEMP 98.3; O2SAT 96
== END 2021-11-17 14:42 | DRG 177 ==
LOC: EMEROOARM 13:25 → 3BNU 13:25 → SUATTDRO 17:17 → 3BNU 17:43 → SUATTDRO 10-31 14:01 → UNDODISIN 11-12 13:05
PROVIDERS: ADMIT General Practice; ATTEND Family Medicine